=== PATIENT | female | born 1950 | race Caucasian/White ===

== ENCOUNTER 2016-12-28 05:51 | Day surgery (SDC) | payer BC ==
--- NOTE | 2016-12-16 18:39 | HP ---
Amended report to enter cosigning doctor. PREOPERATIVE HISTORY AND PHYSICAL: DATE OF ADMISSION: 12/28/16 PROVIDER: Sean Miner MD* (dictated by RONALDO Atkinson). CHIEF COMPLAINT: Left knee pain. HISTORY OF PRESENT ILLNESS: Destinee is a 66-year-old female followed by Dr. Miner for ongoing complaints of left knee pain. She has pain consistently as she is on her feet all day. She did have to do a restraint that stressed her left knee and caused pain and swelling while at work. The knee pain is made worse with impact loading and pivoting. She also notes that the knee pops when she is twisting and pivoting including in bed. She underwent an MRI that did reveal a medial meniscus tear. She is interested in surgical intervention for correction of the problem. PAST MEDICAL HISTORY: 1. Depression. 2. Hypothyroidism. 3. Hypertension. 4. Type 2 diabetes. 5. Hyperlipidemia. PAST SURGICAL HISTORY: Right fourth finger percutaneous pinning and subsequent fusion. She reports no complications with anesthesia with that procedure. CURRENT MEDICATIONS: 1. Lexapro 10 mg p.o. q. daily. 2. Levothyroxine sodium 75 mcg p.o. q. day. 3. Losartan potassium 50 mg 1 p.o. q. day. 4. Janumet 50/500 mg 1 p.o. b.i.d. 5. Simvastatin 20 mg 1 p.o. q. day. 6. Hydrochlorothiazide 12.5 mg 1 p.o. q. day. 7. Ambien 10 mg 1 p.o. q.h.s. p.r.n. ALLERGIES: No known drug allergies. FAMILY HISTORY: Noncontributory. SOCIAL HISTORY: She lives alone. She denies tobacco use. She denies alcoholic beverage use. She does exercise regularly. She is a former smoker, she quit 11 years ago, and smoked for 20 years prior to that. 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 PHYSICAL EXAMINATION GENERAL: She is a well-developed, well-nourished female, in no acute distress at rest. She is alert and oriented x3 with appropriate mood and affect. VITAL SIGNS: The patient is 5 feet 4 inches, 190 pounds. Blood pressure 118/74 , temperature 97.8, and pulse of 68. HEENT: Normocephalic, atraumatic. Hearing and vision are grossly intact. NECK: Her trachea is midline. RESPIRATORY: Lungs are clear to auscultation bilaterally. No wheezes, rales, or rhonchi. CARDIOVASCULAR: Regular rate and rhythm. No murmurs, rubs, or gallops. Normal S1 and S2. ABDOMEN: Soft, nondistended, nontender. Normal bowel sounds. EXTREMITIES: Exam of the left lower extremity, skin is intact without abrasions or open wounds. She has some mild edema throughout the lower legs and no ecchymosis or gross deformities. She has tenderness to palpation along the medial aspect of the patella and anteromedial joint line. She is nontender laterally and posteriorly. Thigh and calf are soft, and nontender. She has stable varus and valgus stress testing. She has a negative Jason. She has pain with Denise's. Sensation to light touch is intact. She has a normal vascular exam. IMPRESSION: Left knee medial meniscus tear. PLAN: The patient is to undergo left knee arthroscopic surgery by Dr. Miner on 12/28/16. The risks, benefits, and postoperative course were discussed with the patient at length and she would like to proceed. A prescription for [place] was sent to her pharmacy for postoperative pain. All of her questions were answered to her full satisfaction. She is understanding to call if she develops problems or concerns. She does state that she is undergoing an ultrasound to rule out a DVT given the swelling in her lower leg and recent travel. The results of this will be confirmed prior to surgery. RONALDO ATKINSON [id number]/[facility] #: [id number] ZANA
[~2016-12-28 05:51] MED LIST: Buffered Lidocaine 0.9% SYRIN* 5 ML/SYR SYRINGE INTRADERM ONE
[2016-12-28] MEDS ORDERED: celeCOXIB CAP* 100 MG ONE (05:53)
[2016-12-28] MEDS ORDERED: ceFAZolin 2 GM PREMIX (*) 50 ML IVPB ONE (05:53)
[2016-12-28] MEDS ORDERED: Sodium Citrate/Citric Acid* 15 ML UDC ONE (05:53)
[2016-12-28] MEDS ORDERED: Buffered Lidocaine 0.9% SYRIN* 5 ML/SYR SYRINGE ONE (05:53)
[2016-12-28] MEDS ORDERED: Sodium Citrate/Citric Acid* 15 ML UDC PO ONE (06:00)
[2016-12-28] MEDS ORDERED: celeCOXIB CAP* 200 MG PO ONE (06:00)
[2016-12-28] MEDS ORDERED: Lidocaine 1% MPF wEPI 200,000* 30 ML SDV ONE (07:12)
[2016-12-28] MEDS ORDERED: Bupivacaine 0.5% SDV PF* 30 ML VIAL ONE (07:12)
[2016-12-28] MEDS ORDERED: Metoclopramide IV* 5 MG/ML 2 ML VIAL ONE (07:33)
[2016-12-28] MEDS ORDERED: fentaNYL* 50 MCG/ML 2 ML VIAL (100 MCG VIAL) ONE ×2 (07:50→08:37)
[2016-12-28] MEDS ORDERED: Succinylcholine* 20 MG/ML 10 ML VIAL ONE (07:50)
[2016-12-28] MEDS ORDERED: Propofol* 10 MG/ML 20 ML BTL IV PUSH ONE (07:50)
[2016-12-28] MEDS ORDERED: Lidocaine 2% PF * 5 ML VIAL ONE (07:50)
[2016-12-28] MEDS ORDERED: DiMENhydriNATE IV* 50 MG/ML VIAL IV PUSH PRN (08:19)
[2016-12-28] MEDS ORDERED: fentaNYL* 50 MCG/ML 2 ML VIAL (100 MCG VIAL) IV PRN (08:19)
[2016-12-28] MEDS: oxyCODONE TAB* 5 MG TAB PO PRN ×2 (09:33→09:34)
[2016-12-28] MEDS ORDERED: oxyCODONE TAB* 5 MG TAB ONE (09:33)
[2016-12-28 09:54] VITALS: BP 122/75
--- NOTE | 2016-12-28 16:56 | OP ---
CC: Dr. Roberson * DATE OF OPERATION: 12/28/16 - SDS DATE OF : 50 SURGICAL CARE: Left knee. SURGEON: Sean Miner MD WOOL SCOURER: RONALDO Salomon ANESTHESIOLOGIST: Kevin Luong MD ANESTHESIA: Endotracheal tube, general. PRE-OP DIAGNOSIS: Left knee medial meniscal tear. 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 OPERATIVE PROCEDURE: Left knee arthroscopic partial medial meniscectomy and chondroplasty of the patella. INDICATIONS: Meniscal tear. COMPLICATIONS: There were no complications. DRAINS: There were no drains. TOURNIQUET: Tourniquet control was utilized. BLOOD LOSS: 50 mL. REPLACEMENT: Crystalloid fluids. DESCRIPTION OF PROCEDURE: The patient was brought to the operating room and placed on the operating room table in the supine position, following the administration of the anesthetic, then the left proximal thigh was wrapped with tourniquet and the left leg was prepped from the tourniquet to the foot and then draped free and carefully sealed off in the usual fashion for arthroscopic surgery in the knee. The left leg, ankle, and foot portion was sealed off with an impermeable drape with Vi-Drape wrapped around that at the top of the calf. We did our universal protocol time-out confirming Destinee Munroe and the plan for left knee arthroscopic surgery. We all agreed and we proceeded. The leg was exsanguinated. The tourniquet on the thigh elevated to 275. The knee was set up for arthroscopy with the arthroscope lateral to the patellar tendon, probe and operating instruments medial to the patellar tendon, and an inflow catheter superomedial to the patella. The survey of the joint showed that there was debris within the synovial fluid. This was irrigated clear as the case went on. The patella had chondromalacia patella and was kind of diffuse soft crabmeat and there was a pile of synovitis at the medial margin in the patella. There was anterior synovitis as well as, so some of the synovium was excised where it was pedunculated and had fronds. The patellar chondroplasty was done from the medial portal and from the lateral portal. The lateral and medial gutters were cleared and medial femoral condyle had some wear and little cartilage loss along the intercondylar notch. The medial tibial plateau had complete cartilage loss underneath the torn portion of the medial meniscus that was somewhat flapped. The medial meniscus had been torn mid and posteriorly. Once this pathology was evident and I did a partial medial meniscectomy trying to remove the flap that would be bothersome getting caught between the bones and tiny bit of loose flap cartilage was removed from the tibial plateau where it was down to bone. After smoothing the medial meniscus, we took the final photograph. The lateral compartment was in satisfactory condition and I did not think any surgical care was necessary there. The tourniquet was then deflated. The knee was irrigated with another 5 L of saline irrigation solution , then suctioned empty. There was some blood in the joint at this point. This was suctioned and then the knee was then instilled with lidocaine 1% with epinephrine 30 mL. The skin portals were closed with interrupted 3-0 Surgipro. Dressing was applied after washing and drying of Betadine-soaked release, sterile gauze, sterile Webril, cryotherapy cuff, ABD pads, and a 6-inch Adolfo bandage loosely applied. The patient was then returned to the recovery room in stable and satisfactory condition having tolerated the procedure very well. [id number]/[facility] #: [id number] ZANA
== END 2016-12-28 10:19 | disposition home or self-care (01) ==
LOC: OR 05:51
PROVIDERS: ATTEND Orthopaedic Surgery
DX: S83.242A Other tear of medial meniscus, current injury, left knee, initial encounter (principal); M22.42 Chondromalacia patellae, left knee; E03.9 Hypothyroidism, unspecified; E78.5 Hyperlipidemia, unspecified; I10 Essential (primary) hypertension; F41.1 Generalized anxiety disorder; Z87.891 Personal history of nicotine dependence; X50.0XXA Overexertion from strenuous movement or load, initial encounter; Y92.89 Other specified places as the place of occurrence of the external cause
CPT/HCPCS: 88304; A9270-GY; J0330; J0690; J2001; J2704; J2765; J3010